=== PATIENT | female | born 1950 | race Caucasian/White ===

== ENCOUNTER 2017-02-13 08:43 | Inpatient (IN) | payer OTHER, MEDICAID ==
--- NOTE | 2017-02-13 08:37 | EDPHY ---
Medical Decision Making ED Course/Re-evaluation: CHIEF COMPLAINT: HISTORY OF PRESENT ILLNESS: must have 4 elements: Location, Quality, Severity , Duration, Timing, Context, Modifying Factors, Associated Signs and Symptoms REVIEW OF SYSTEMS: A 10 point review of systems was performed and is negative with the exception of the elements mentioned in the history of present illness. PHYSICAL EXAM: HR, BP, O2 Sat, RR. Temp noted General Appearance: Alert, well hydrated, appropriate, and non-toxic appearing. Head: Atraumatic without scalp tenderness or obvious injury Eyes: Pupils equal, round, reactive to light and accommodation, EOMI, no trauma , no injection. Ears: Clear bilaterally, no perforation, normal landmarks Nose: Atraumatic, no rhinorrhea, clear. Throat: There is no erythema or exudates, no lesions, normal tonsils, mucus membranes moist. Neck: Supple, 2+ carotid upstroke, nontender, no lymphadenopathy. Respiratory: No retractions, no distress, no wheezes, and no accessory muscle use. Lungs are clear to auscultation bilaterally. Cardiovascular: Regular rate and rhythm, no murmurs, rubs, or gallops. Bilateral carotid, radial, dorsalis pedis, and posterior tibial pulses intact. Good capillary refill all extremities. Gastrointestinal: Abdomen is soft, nontender, non-distended, no masses, no rebound, no guarding, no peritoneal signs. Musculoskeletal: Normal active ROM of all extremities, atraumatic. Neurological: Alert, appropriate, and interactive. The patient has normal DTRs and non-focal cranial nerves, motor, sensory, and cerebellar exam. Skin: No rashes, good turgor, no nodules on palpation. Past medical history: Past surgical history: Family history: Social history: DIAGNOSTICS/PROCEDURES/CRITICAL CARE TIME: DIFFERENTIAL DIAGNOSIS: MEDICAL DECISION MAKING:
[2017-02-13 09:12] LABS: % IMMATURE GRANULYOCYTES 0.6 % (0.0-1.1); ABSOLUTE IMMATURE GRANULOCYTES 0.06 10^3/uL (0.00-0.10); ADD DIFF? NO; ADD MORPH? NO; ADD SCAN? NO; ATYPICAL LYMPHOCYTE FLAG 0 (0-99); FRAGMENT RBC FLAG 0 (0-99); HEMATOCRIT 25.6 % (38.0-47.0); HEMOGLOBIN 8.3 g/dL (12.6-16.3); LEFT SHIFT FLG 10 (0-99); LIPEMIA HEMOLYSIS FLAG 80 (0-99); MEAN CELL HEMOGLOBIN 27.7 pg (27.9-34.1); MEAN CELL HEMOGLOBIN CONCENTR. 32.4 g/dL (32.4-36.7); MEAN CELL VOLUME 85.3 fL (81.5-99.8); MEAN PLATELET VOLUME 8.7 fL (8.7-11.7); PLATELET CLUMPS FLAG 0 (0-99); PLATELET COUNT 461 10^3/uL (150-400); RED CELL DISTRIBUTION WIDTH 17.4 % (11.5-15.2)
--- NOTE | 2017-02-13 09:15 | EDPHY ---
H & P Stated Complaint: Low grade fever, AMS - Personal History Current Tetanus/Diphtheria Vaccine: Yes - Medical/Surgical History Hx Asthma: No Hx Chronic Respiratory Disease: No Hx Diabetes: No Hx Cardiac Disease: No Hx Renal Disease: No Hx Cirrhosis: No Hx Alcoholism: No Hx HIV/AIDS: No Hx Splenectomy or Spleen Trauma: No Other PMH: MS, Quadriplegia, pressure ulcer rt buttock, HTN, Dysarthria, Dysphonia, Neurogenic Bowel, Muscle Spasms, Incontinence, Insomnia, Edema, Anemia, Hemorrhoids, Neurobuscular Dysfunction of Bladder - Social History Smoking Status: Never smoked Time Seen by Provider: 02/13/17 09:00 HPI/ROS: CHIEF COMPLAINT: Fever, altered mental status HISTORY OF PRESENT ILLNESS: 66-year-old female arrives via ambulance from [facility] for fever, altered mental status for 2 weeks, dysarthria increased over the past 2 weeks. The patient has medical history significant for multiple sclerosis, quadriplegia, sacral decubitus ulcer, chronic indwelling Moreno catheter. The patient has no complaints of discomfort when I interview her. Daughter at bedside states that the patient appears to have increased dysarthria over the past 2 weeks and increased altered mental status over the past 2 weeks with fever at her custodial. There are no reports of trauma or fall. No abdominal pain. No vomiting. REVIEW OF SYSTEMS: A ten point review of systems was performed and is negative with the exception of the items mentioned in the HPI PAST MEDICAL & SURGICAL HISTORY: Multiple sclerosis, quadriplegia, bed-bound, dysarthria, dysphonia, chronic indwelling Moreno catheter, sacral pressure ulcer SOCIAL HISTORY: lives in [place] PHYSICAL EXAM (Prior to examination, patient consented to physical exam, hands were washed and my usual and customary physical exam procedures followed) 1) GENERAL: Well-developed, well-nourished, alert and oriented. Appears to be in no acute distress. 2) HEAD: Normocephalic, atraumatic 3) HEENT: Pupils equal, round, reactive to light bilaterally. Sclera anicteric. 4) NECK: Full range of motion, no meningeal signs. 5) LUNGS: Clear auscultation bilaterally, no wheezes, no rhonchi, no retractions. 6) HEART: Regular rate and rhythm, no murmur, no heave, no gallop. 7) ABDOMEN: No guarding, no rebound, no focal tenderness, negative McBurney's, negative Fernandez's, negative Rovsing's, negative peritoneal sign, 8) MUSCULOSKELETAL: Moving all extremities, no focal areas of tenderness, no obvious trauma. No peripheral edema or discoloration. 9) BACK: stage IV decubitus ulcer 10) SKIN: No rash, no petechiae. 11) Psychiatric: Patient is oriented X 3, there is no agitation. 12) rectal: brown stool on glove no jeffrey blood DIFFERENTIAL DIAGNOSIS: [ in no particular order including but not limited to urosepsis, pyelonephritis, cystitis, sacral decubitus ulcer (Kwaku Regalado) Constitutional: Initial Vital Signs Temperature (C) 37.5 C 02/13/17 08:43 Heart Rate 82 02/13/17 08:43 Respiratory Rate 16 02/13/17 08:43 Blood Pressure 83/54 L 02/13/17 08:43 O2 Sat (%) 94 02/13/17 08:43 O2 Delivery Mode Nasal Cannula O2 (L/minute) 2.5 Allergies/Adverse Reactions: acyclovir Allergy (Verified 02/13/17 08:47) Home Medications: Medication Instructions Recorded Aspirin [Aspirin 81mg (*)] 81 mg PO HS@02/13/17 Baclofen [Baclofen 20 mg (*)] 20 mg PO BID@02/13/17 Baclofen [Baclofen 20 mg (*)] 20 mg PO DAILY@02/13/17 Bisacodyl [Dulcolax] 10 mg RC DAILY@02/13/17 Docusate Sodium [Colace 100 MG (*)] 200 mg PO DAILY@02/13/17 Ergocalciferol (Vitamin D2) 50,000 unit PO .Q30D 02/13/17 [Vitamin D2] Furosemide [Lasix 20 MG (*)] 40 mg PO BID@,02/13/17 Herbals/Supplements -Info Only 1 ea PO DAILY 02/13/17 Hydrocodone/Acetaminophen [Moran 1 - 2 tab PO BID@ PRN 02/13/17 5/325 (*)] Ibuprofen [Motrin (*)] 600 mg PO HS 02/13/17 Magnesium Hydroxide/Al Hydrox 30 ml PO Q4 PRN 02/13/17 [Mylanta Liquid] Magnesium Oxide [Magnesium Oxide 400 mg PO DAILY@02/13/17 400 mg (*)] Methotrexate Sodium [Rheumatrex] 2.5 mg PO WE@02/13/17 Multivitamins W-Minerals [Thera M 1 each PO DAILY@02/13/17 Plus Tablet (*)] [place]-3 Fatty Acids [Fish Oil 1000 1,000 mg PO DAILY@02/13/17 mg (*)] Oxybutynin Chloride [Oxybutynin 30 mg PO DAILY@02/13/17 Chloride Er] Potassium Cl [Klor-Con 20 meq (*)] 20 meq PO DAILY 02/13/17 Temazepam [RESTORIL] 22.5 mg PO CORTES@02/13/17 Temazepam [Restoril] 30 mg PO MOTUWETHFRSA@02/13/17 Tizanidine HCl [Zanaflex] 4 mg PO BID@,02/13/17 traMADol [Ultram 50 mg (*)] 100 mg PO TID@,,02/13/17 Medical Decision Making - Diagnostics Imaging: Discussed imaging studies w/ bias binding folder Radiologist - Diagnostics Imaging Results: Imaging Impressions Chest X-Ray 02/13/17 09:00 Impression: 1. Patchy infiltrates right suprahilar region and both lung bases. Consider pneumonia. 2. Mild to moderate cardiomegaly with shift of the mediastinum toward the right possibly from underlying moderate dextroscoliosis lower thoracic spine and elevation of the left hemidiaphragm. Head CT 02/13/17 09:10 Impression: 1. Mild age-related atrophy. 2. No hemorrhage, mass effect, or definite acute peripheral infarct. 3. Moderate nonspecific hypodensities in the white matter of bilateral cerebral hemispheres. Differential diagnosis includes microvascular ischemic disease, post-infectious/post-inflammatory sequela, atypical demyelinating disease, or migraine-related sequela. Small white matter lacunar infarcts may also have this appearance. If symptoms worsen, additional imaging may be necessary. Findings discussed with Kwaku BUITRAGO at 10:18 hour, 02/13/2017. ED Course/Re-evaluation: I evaluated this patient with Troy dover. I discussed the laboratory results , treatment plan, plan for admission. I have also spoken to her daughter and son-in-law. This patient has a very significant decubitus ulcer probably stage 3-4. She also has urinary infection. She continually is hypotensive according to the daughter that is chronic for her. Also, she is known to have anemia chronically. We have discussed the case with the hospitalist and she will be admitted. (Forest Posada) 9:13 a.m.: Care of patient under supervision of secondary supervising physician Dr Posada who independently evaluated patient. Old medical records reviewed. Multiple diagnostic studies will be obtained and plan on likely admission. 10:39 a.m.: Phone consultation with hospitalist, Halie Hamlin, admit to Dr Freitas (Kwaku Regalado) - Data Points Laboratory Results: Laboratory Results 02/13/17 09:01 02/13/17 09:01 02/13/17 02/13/17 02/13/17 10:38 10:38 09:20 WBC RBC Hgb Hct MCV MCH MCHC RDW Plt Count MPV Neut % (Auto) Lymph % (Auto) [place] % (Auto) Eos % (Auto) Baso % (Auto) Nucleat RBC Rel Count Absolute Neuts (auto) Absolute Lymphs (auto) Absolute Monos (auto) Absolute Eos (auto) Absolute Basos (auto) Absolute Nucleated RBC Immature Gran % Immature Gran # PT INR APTT VBG Lactic Acid Sodium Potassium Chloride Carbon Dioxide Anion Gap BUN Creatinine Estimated GFR Glucose Calcium Total Bilirubin Troponin I Urine Color DARIEN Urine Appearance TURBID Urine pH 6.0 (5.0-7.5) Ur Specific [place] 1.014 (1.002-1.030) Urine Protein 2+ H (NEGATIVE) Urine Ketones NEGATIVE (NEGATIVE) Urine Blood 3+ H (NEGATIVE) Urine Nitrate NEGATIVE (NEGATIVE) Urine Bilirubin NEGATIVE (NEGATIVE) Urine Urobilinogen NEGATIVE EU EU (0.2-1.0) Ur Leukocyte Esterase 2+ H (NEGATIVE) Urine RBC 25-50 /hpf H /hpf (0-3) Urine WBC 50-182 /hpf H /hpf (0-3) Ur Epithelial Cells TRACE /lpf /lpf (NONE-1+) Urine Bacteria 4+ /hpf H /hpf (NONE SEEN) Urine Glucose NEGATIVE (NEGATIVE) Stool Occult Bld Scrn Pending NEGATIVE (NEGATIVE) 02/13/17 02/13/17 02/13/17 09:12 09:01 09:01 WBC RBC Hgb Hct MCV MCH MCHC RDW Plt Count MPV Neut % (Auto) Lymph % (Auto) [place] % (Auto) Eos % (Auto) Baso % (Auto) Nucleat RBC Rel Count Absolute Neuts (auto) Absolute Lymphs (auto) Absolute Monos (auto) Absolute Eos (auto) Absolute Basos (auto) Absolute Nucleated RBC Immature Gran % Immature Gran # PT 14.5 SEC SEC (12.0-15.0) INR 1.14 (0.83-1.16) APTT 31.8 SEC SEC (23.0-38.0) VBG Lactic Acid Sodium 132 mEq/L L mEq/L (134-144) Potassium 4.1 mEq/L mEq/L (3.5-5.2) Chloride 95 mEq/L L mEq/L (97-110) Carbon Dioxide 26 mEq/l mEq/l (22-31) Anion Gap 11 mEq/L mEq/L (8-16) BUN 38 mg/dL H mg/dL (7-23) Creatinine 0.9 mg/dL mg/dL (0.6-1.0) Estimated GFR > 60 Glucose 104 mg/dL H mg/dL (70-100) Calcium 8.7 mg/dL mg/dL (8.5-10.4) Total Bilirubin 0.3 mg/dL mg/dL (0.1-1.4) Troponin I 0.022 ng/mL ng/mL (0.000-0.034) Urine Color Urine Appearance Urine pH Ur Specific [place] Urine Protein Urine Ketones Urine Blood Urine Nitrate Urine Bilirubin Urine Urobilinogen Ur Leukocyte Esterase Urine RBC Urine WBC Ur Epithelial Cells Urine Bacteria Urine Glucose Stool Occult Bld Scrn 02/13/17 02/13/17 09:01 09:01 WBC 10.73 10^3/uL H 10^3/uL (3.80-9.50) RBC 3.00 10^6/uL L 10^6/uL (4.18-5.33) Hgb 8.3 g/dL L g/dL (12.6-16.3) Hct 25.6 % L % (38.0-47.0) MCV 85.3 fL fL (81.5-99.8) MCH 27.7 pg L pg (27.9-34.1) MCHC 32.4 g/dL g/dL (32.4-36.7) RDW 17.4 % H % (11.5-15.2) Plt Count 461 10^3/uL H 10^3/uL (150-400) MPV 8.7 fL fL (8.7-11.7) Neut % (Auto) 86.8 % H % (39.3-74.2) Lymph % (Auto) 8.7 % L % (15.0-45.0) [place] % (Auto) 3.2 % L % (4.5-13.0) Eos % (Auto) 0.4 % L % (0.6-7.6) Baso % (Auto) 0.3 % % (0.3-1.7) Nucleat RBC Rel Count 0.0 % % (0.0-0.2) Absolute Neuts (auto) 9.33 10^3/uL H 10^3/uL (1.70-6.50) Absolute Lymphs (auto) 0.93 10^3/uL L 10^3/uL (1.00-3.00) Absolute Monos (auto) 0.34 10^3/uL 10^3/uL (0.30-0.80) Absolute Eos (auto) 0.04 10^3/uL 10^3/uL (0.03-0.40) Absolute Basos (auto) 0.03 10^3/uL 10^3/uL (0.02-0.10) Absolute Nucleated RBC 0.00 10^3/uL 10^3/uL (0-0.01) Immature Gran % 0.6 % % (0.0-1.1) Immature Gran # 0.06 10^3/uL 10^3/uL (0.00-0.10) PT INR APTT VBG Lactic Acid 0.9 mmol/L mmol/L (0.7-2.1) Sodium Potassium Chloride Carbon Dioxide Anion Gap BUN Creatinine Estimated GFR Glucose Calcium Total Bilirubin Troponin I Urine Color Urine Appearance Urine pH Ur Specific [place] Urine Protein Urine Ketones Urine Blood Urine Nitrate Urine Bilirubin Urine Urobilinogen Ur Leukocyte Esterase Urine RBC Urine WBC Ur Epithelial Cells Urine Bacteria Urine Glucose Stool Occult Bld Scrn Medications Given: Discontinued Medications Levofloxacin/Dextrose (Levaquin 750 Mg (Premix)) 150 mls @ 100 mls/hr IV EDNOW ONE PRN Reason: Protocol Stop: 02/13/17 10:44 Last Admin: 02/13/17 10:35 Dose: 150 mls Departure - Departure Disposition: [facility] Inpatient Acute Clinical Impression: Sacral decubitus ulcer, stage IV Fever Qualifiers: Fever type: unspecified Qualified Code(s): R50.9 - Fever, unspecified Altered mental status Qualifiers: Altered mental status type: unspecified Qualified Code(s): R41.82 - Altered mental status, unspecified Sepsis Qualifiers: Sepsis type: sepsis due to unspecified organism Qualified Code(s): A41.9 - Sepsis, unspecified organism Anemia Qualifiers: Anemia type: unspecified type Qualified Code(s): D64.9 - Anemia, unspecified Condition: Fair
[2017-02-13 09:38] LABS: INR 1.14 (0.83-1.16); PROTIME(PATIENT) 14.5 SEC (12.0-15.0)
[2017-02-13 09:39] LABS: APTT 31.8 SEC (23.0-38.0)
[2017-02-13] MEDS ORDERED: levOFLOXACIN 500 MG/DEXTROSE/100 ML BAG IV ONE (10:00)
[2017-02-13 10:03] LABS: COLOR AMBER; LEUKOCYTE ESTERASE,URINE 2+ (NEGATIVE); NITRITE,URINE NEGATIVE (NEGATIVE)
[2017-02-13 10:20] LABS: BACTERIA 4+ /hpf (NONE SEEN); RBC,URINE 25-50 /hpf (0-3); WBC,URINE 50-182 /hpf (0-3)
--- NOTE | 2017-02-13 10:41 | CPEKG ---
Heart Rate: 69 RR Interval: 870 P-R Interval: 148 QRSD Interval: 82 QT Interval: 412 QTC Interval: 442 P Benld: 26 QRS Benld: 62 T Wave Benld: 76 EKG Severity - ABNORMAL ECG - EKG Impression: SINUS RHYTHM EKG Impression: PROBABLE INFEROLATERAL INFARCT, AGE INDETERM EKG Impression: CONSIDER ANTERIOR INFARCT Electronically Signed By: Forest Posada 13-Feb-2017 14:33:03
[2017-02-13 11:06] LABS: ANION GAP 11 mEq/L (8-16); BILIRUBIN,TOTAL 0.3 mg/dL (0.1-1.4); CALCIUM 8.7 mg/dL (8.5-10.4); CARBON DIOXIDE 26 mEq/l (22-31); CHLORIDE 95 mEq/L (97-110); CREATININE 0.9 mg/dL (0.6-1.0); GLOMERULAR FILTRATION RATE > 60; GLUCOSE 104 mg/dL (70-100); POTASSIUM 4.1 mEq/L (3.5-5.2); SODIUM 132 mEq/L (134-144)
[2017-02-13] MEDS ORDERED: ONDANSETRON 4 MG/2 ML VIAL IVP PRN (11:27)
--- NOTE | 2017-02-13 11:31 | PDGENHP ---
History and Physical History and Physical: CC: fever and confusion HISTORY: Taken from the patient and also her daughter and son in law at bedside. First [facility] visit for this patient who has lived at [facility] for past 17 years with 30 years of multiple sclerosis. (notably it has been recommended to her for a few weeks she come to [facility] for evaluation but she has declined which is typical for her). She has a chronic sacral decubitus ucler and around 6 weeks ago it was noted the wound was getting deeper with some tunneling, but she declined to come here for wound assessment. She has had the ulcer for numerous years and getting regular wound care, and is on a wound care bed. Two days ago fevers as high as 101.9 started with some mild changes in mentation, but really no other symptoms, and she was felt to be dehydrated. It sounds like she received IV fluids, but no antibiotics or other change in care. ROS: A comprehensive 10 system review revealed no other significant findings PAST MEDICAL HISTORY: MS x 30 years neurogenic bladder with chronic indwelling rock cath neurgenic bowel chronic sacral decubitus 1 episode of pneumonia treated 4 yrs ago at [facility] FAMILY MEDICAL HISTORY: unremarkable for significant or relevent illness SOCIAL HISTORY: born at [facility], lived in [place] all but 4 years when she lived in [place]. No tobacco or alcohol MEDICATIONS: The patients list has been reconciled by our clinical pharmacist in the EMR. I have reviewed the list and ordered appropriate medicines. PHYSICAL EXAMINATION: Vital Signs: T 37.6. 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, minimal movement of limbs Skin: warm, dry, good color, no rash HEENT: normal Neck: no mass or jvd Resps: relaxed Lungs: clear breath sounds Heart: regular, no murmur Abdomen: soft, nondistended, nontender, +BS, no mass Upper Extremities: normal Lower Extremities: no edema, warm No Bleeding or bruising LABORATORY DATA: pyuria present on cath specimen (chronic rock in) Na 132, wbc 10k w pmn's, Hg 8.3 normocytic cultures of blood and urine obtained in ER RADIOLOGY STUDIES: CXR 2 view in ER: Radiologist reports bibasilar infiltrates, My Interpetation: nothing that really looks like a pneumonia, but rather severely low lung volumes with expected atelectasis (this is expected chronic finding for her); also her heart is mainly in the R hemithorax, could not rule out situs inversus w no old comparison - could call this due to loss of lung volume however looks like lung volume loss greater on L than R so would expect heart to go other way. Head CT in ER, my reading: no acute abnormalities 12 LEAD EKG: NSR, very mild diffuse concave up ST elevation of questionable significance ASSESSMENT: -fever uncertain source -hypotension, not meeting strict criteria for sepsis but needs very careful monitoring -large decubitus ulcer -pyuria with chronic indwelling rock cath of very doubtful significance -CXR abnormalities I believe most likely represent atelectasis with chronic low lung volumes; no resp sxs; I do NOT think she has pneumonia -mild hyponatremia -anemia normocytic, chronic, uncertain baseline In the ER this patient was diagnosed as having a urinary tract infection and started on Levaquin for that. I do not think she has a urinary tract infection at this time very likely, and I do not think she has an visits of any other infection that is likely to respond to Levaquin. Therefore I am going to discontinue that antibiotic. She does have a very large decubitus ulcer that is very deep and has a moderate chance of infection. Under await for surgical assessment of this and wound care assessment but it seems to me that there is a possibility of deep infection including even possibly osteomyelitis and that advanced imaging is probably indicated. I have sent a culture from the bed of the wound obtained on my examination today. I am going to begin empiric antibiotic for wound infection at this time. PLANS: -inpt admission as > 48 hrs will be needed for assessment and stabilization -IV fluid resuscitation -discontinue Levaquin -wound care consultation -surgical consultation -empiric antibiotic for care of her deep sacral wound -she will need a specialty skin care mattress -full cor per the patient's wishes I have reviewed the patient's case in detail with Dr. Dragan King and Amairani Mata
--- NOTE | 2017-02-13 11:44 | ASMTCASEMG ---
Living Arrangements What is your living Answers: With Other (Not Family) arrangement? Who do you live with? Type Of Residence What kind of residence do Answers: Assisted Living you live in? Type of Residence Facility Name Notes: [facility] Case Management Evaluation Education Needs Answers: Advance Directive Notes: Request for Advance Directive change of cod e Discharge Plan Comments Coordination Status Comments Notes: Pt in [facility] via ambulance from [facility]. She arrived with altered mental status and fever. Pts daughter Eunice Kilpatrick ([phone]) and son in law Michael Kilpatrick ([phone]) both RNs expressed concerns about her deteriorating state and increasing symptoms of MS. Specifically, pt has experienced increased choking and inability to chew. Eunice expressed high concerns for pts quality of life. They indicated that pt has been in [facility] for 17 years and there are no significant complaints regarding her care. Pt is generally healthy aside from a wound that will not heal near her rectum; it has been there for 7 years. According to Eunice, the pt loves the [facility] and has a new grandbaby on the way; she views those as her primary motivators. The pts lives in [place]. Eunice and Michael expressed concern regarding his ability to make decisions with regard to pts care. Eunice would like to be the decision maker for her mother. Eunice and Michael provided with "Your Right to Make Healthcare Decisions" brochure. Additional advanced directive information would be beneficial. Eunice would like to initiate an advanced directive but the pt has declined to discuss it. Additional CM needs TBD, CM to follow. Date Signed: 02/13/2017 11:43 AM Electronically Signed By:Darshana Reynolds LCSW
[2017-02-13] MEDS ORDERED: MAG HYDROX/AL HYDROX/SIMETH 30 ML UDCUP PO PRN (12:48)
[2017-02-13] MEDS: ACETAMINOPHEN 325 MG TAB PO PRN (13:53)
[2017-02-13] MEDS ORDERED: NON-FORMULARY NEW DRUG (Magnesium Hydroxide/Al Hydrox [Mylanta Liquid] 30 ML) PO SCH (14:00)
[2017-02-13] MEDS: FUROSEMIDE 20 MG TAB PO SCH (16:26)
[2017-02-13] MEDS: HYDROCODONE/APAP 5/325 TAB PO PRN (16:26)
[2017-02-13] MEDS ORDERED: NON-FORMULARY NEW DRUG (Tizanidine Hcl [Zanaflex] 4 MG) PO SCH (19:00)
[2017-02-13] MEDS: traMADol 50 MG TAB PO SCH (20:01)
[2017-02-13] MEDS: BACLOFEN 20 MG TAB PO SCH (20:02)
[2017-02-13] MEDS: IBUPROFEN 600 MG TAB PO SCH (20:02)
[2017-02-13] MEDS: NS 1,000 ML IV SCH (21:14)
[2017-02-13] MEDS: VANCOMYCIN 750 MG in D5W 150 ML IV SCH (21:15)
[2017-02-13] MEDS: ASPIRIN 81 MG CHEWABLE TAB PO SCH (22:19)
[2017-02-13] MEDS: ERTAPENEM 1 GM in NS 100 ML IV SCH (22:35)
[2017-02-13] MEDS: TEMAZEPAM 15 MG CAP PO SCH (22:40)
[2017-02-13] MEDS ORDERED: NON-FORMULARY NEW DRUG (Temazepam [Restoril] 30 MG) PO SCH (23:00)
[2017-02-14] MEDS: ACETAMINOPHEN 325 MG TAB PO PRN (01:13)
[2017-02-14] MEDS: NS 1,000 ML IV SCH (04:04)
[2017-02-14 04:39] LABS: % IMMATURE GRANULYOCYTES 1.6 % (0.0-1.1); ABSOLUTE IMMATURE GRANULOCYTES 0.09 10^3/uL (0.00-0.10); ADD DIFF? NO; ADD MORPH? YES; ADD SCAN? NO; ATYPICAL LYMPHOCYTE FLAG 0 (0-99); FRAGMENT RBC FLAG 0 (0-99); HEMATOCRIT 21.8 % (38.0-47.0); LEFT SHIFT FLG 20 (0-99); LIPEMIA HEMOLYSIS FLAG 80 (0-99); MEAN CELL HEMOGLOBIN 27.4 pg (27.9-34.1); MEAN CELL HEMOGLOBIN CONCENTR. 31.7 g/dL (32.4-36.7); MEAN CELL VOLUME 86.5 fL (81.5-99.8); MEAN PLATELET VOLUME 8.6 fL (8.7-11.7); PLATELET CLUMPS FLAG 0 (0-99); PLATELET COUNT 336 10^3/uL (150-400); RED BLOOD CELL COUNT 2.52 10^6/uL (4.18-5.33); RED CELL DISTRIBUTION WIDTH 17.7 % (11.5-15.2)
[2017-02-14 04:44] LABS: HEMOGLOBIN 6.9 g/dL (12.6-16.3)
[2017-02-14 04:56] LABS: ANION GAP 7 mEq/L (8-16); CALCIUM 7.9 mg/dL (8.5-10.4); CARBON DIOXIDE 23 mEq/l (22-31); CHLORIDE 104 mEq/L (97-110); CREATININE 0.8 mg/dL (0.6-1.0); GLOMERULAR FILTRATION RATE > 60; GLUCOSE 87 mg/dL (70-100); MAGNESIUM 2.1 mg/dL (1.6-2.3); POTASSIUM 3.6 mEq/L (3.5-5.2); SODIUM 134 mEq/L (134-144)
[2017-02-14 05:15] LABS: HYPOCHROMIA 1+; MICROCYTES 1+
[2017-02-14 05:16] LABS: PLATELET ESTIMATE ADEQUATE (ADEQ)
[2017-02-14] MEDS: BISACODYL 10 MG SUPP PR SCH (05:58)
[2017-02-14] MEDS: FUROSEMIDE 20 MG TAB PO SCH ×2 (06:11→17:09)
[2017-02-14] MEDS: traMADol 50 MG TAB PO SCH ×3 (06:11→19:59)
[2017-02-14] MEDS: MAGNESIUM OXIDE 400 MG TAB PO SCH (06:11)
[2017-02-14] MEDS: BACLOFEN 20 MG TAB PO SCH ×3 (06:11→20:07)
[2017-02-14] MEDS: MULTIVITAMINS W-MINERALS 1 EACH TAB PO SCH (06:11)
[2017-02-14] MEDS: OMEGA-3 FATTY ACIDS 1,000 MG CAP PO SCH (06:29)
[2017-02-14] MEDS: OXYBUTYNIN CHLORIDE 30 MG PO SCH (06:32)
[2017-02-14] MEDS: VANCOMYCIN 750 MG in D5W 150 ML IV SCH ×2 (07:32→20:57)
[2017-02-14] MEDS: ENOXAPARIN 40 MG/0.4 ML SYR SC SCH (07:33)
[2017-02-14] MEDS: ERTAPENEM 1 GM in NS 100 ML IV SCH (07:33)
[2017-02-14] MEDS: POTASSIUM CL 20 MEQ TAB PO SCH (07:34)
[2017-02-14] MEDS ORDERED: OMEGA-3 FATTY ACIDS 1,000 MG CAP PO SCH (09:00)
--- NOTE | 2017-02-14 09:46 | HOSPPROG ---
Hospitalist Progress Note Assessment/Plan: 66F PMH MS, neurogenic bladder, chronic sacral decubitus ulcer, MS quadriplegia , [facility] resident for the past 17 years. She was recommended to have admission by [facility] staff oer the past few weeks due worsening of sacral ulcer but apparently declined it. 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 Admitted with F, hypotension, pyuria, large decub ulcer. #. large decubitus ulcer: started on Ertapenem and Vanco surgery consult today with Dr. Nelson dennis NPO #. pyuria: await cultures #. F: currently afebrile #. bacteremia versus contaminant: await results of culture reviewed with Dr. Mata who recommends ID consult if bacteremia present #. hypotension: BP improved # anemia: possibly related to IVF will follow #. LOS: inpt due to +BC and need for ongoing care/wound consultation #. DVT ppx: Enoxaparin Subjective: Difficult to understand but states her mouth feels dry. No pain unless moved. Objective: Vital Signs Temp Pulse Resp BP Pulse Ox 98.0 F 87 20 120/59 L 93 02/14/17 07:36 02/14/17 07:36 02/14/17 07:36 02/14/17 07:36 02/14/17 07:36 Microbiology 02/13/17 14:16 Gram Stain - Final Buttock - Swab 02/13/17 13:20 Respiratory Panel (PCR) - Final Nasal, Sinus - Swab No Organism Detected Laboratory Results 02/14/17 04:15 02/14/17 04:15 02/13/17 02/14/17 02/15/17 05:59 05:59 05:59 Intake Total 2200 Output Total 1100 Balance 1100 PT 14.5 SEC (12.0-15.0) 02/13/17 09:01 INR 1.14 (0.83-1.16) 02/13/17 09:01 - Physical Exam Constitutional: no apparent distress Ears, Nose, Mouth, Throat: dry mucous membranes Cardiovascular: regular rate and rhythym, no murmur, rub, or gallop Respiratory: no respiratory distress Skin: other (ischial decub ulcer visualized) Psychiatric: not anxious ICD10 Worksheet Patient Problems: Problems Problem Status Onset Altered mental status Acute Anemia Acute Fever Acute Sacral decubitus ulcer, stage IV Acute Sepsis Acute
--- NOTE | 2017-02-14 10:47 | PDCONSULT ---
Filter Washer Note: Consultation for right ischial decubitus ulcer at the request of Dr. aHmlin Chief complaint fever of unknown origin History of present illness: This is a 66-year-old woman with a history of multiple sclerosis spastic quadriplegia and right ischial decubitus for at least the last 7 years who presents to the hospital for evaluation and management of fever. CT scan of the head was negative. Chest x-ray showed compressive atelectasis. Echocardiogram for vegetations has not been performed. Large decubitus ulcer of the right ischium without exposed bone was noted. Wound Gram stains and cultures are still pending but gram-positive and gram-negative bacteria were noted on the preliminary report. Past medical hx: Altered mental status (Acute) Anemia (Acute) Fever (Acute) Sacral decubitus ulcer, stage IV (Acute) Sepsis (Acute) Surgical history unable to obtain from patient. Reviewed in chart Aspirin [Aspirin 81mg (*)] 81 mg PO HS@02/13/17 [Last Taken 02/12/17] Baclofen [Baclofen 20 mg (*)] 20 mg PO BID@02/13/17 [Last Taken 02/12/17] Baclofen [Baclofen 20 mg (*)] 20 mg PO DAILY@02/13/17 [Last Taken 02/13/17] Bisacodyl [Dulcolax] 10 mg RC DAILY@02/13/17 [Last Taken 02/13/17] Docusate Sodium [Colace 100 MG (*)] 200 mg PO DAILY@02/13/17 [Last Taken 11:00] Ergocalciferol (Vitamin D2) [Vitamin D2] 50,000 unit PO .Q30D 02/13/17 [Last Taken 01/26/17] Furosemide [Lasix 20 MG (*)] 40 mg PO BID@02/13/17 [Last Taken 02/12/17] Herbals/Supplements -Info Only 1 ea PO DAILY 02/13/17 [Last Taken Unknown] Hydrocodone/Acetaminophen [Clifton 5/325 (*)] 1 - 2 tab PO BID@ PRN 02/13/17 [Last Taken 02/12/17] Ibuprofen [Motrin (*)] 600 mg PO HS 02/13/17 [Last Taken 02/12/17] Magnesium Hydroxide/Al Hydrox [Mylanta Liquid] 30 ml PO Q4 PRN 02/13/17 [Last Taken Unknown] Magnesium Oxide [Magnesium Oxide 400 mg (*)] 400 mg PO DAILY@02/13/17 [Last Taken 02/12/17] Methotrexate Sodium [Rheumatrex] 2.5 mg PO WE@02/13/17 [Last Taken 02/10/17] Multivitamins W-Minerals [Thera M Plus Tablet (*)] 1 each PO DAILY@02/13/17 [ Last Taken 02/12/17] [place]-3 Fatty Acids [Fish Oil 1000 mg (*)] 1,000 mg PO DAILY@02/13/17 [Last Taken 02/12/17] Oxybutynin Chloride [Oxybutynin Chloride Er] 30 mg PO DAILY@02/13/17 [Last Taken 02/12/17] Potassium Cl [Klor-Con 20 meq (*)] 20 meq PO DAILY 02/13/17 [Last Taken 02/12/17 ] Temazepam [RESTORIL] 22.5 mg PO CORTES@02/13/17 [Last Taken 02/07/17] Temazepam [Restoril] 30 mg PO MOTUWETHFRSA@02/13/17 [Last Taken 02/12/17] Tizanidine HCl [Zanaflex] 4 mg PO BID@02/13/17 [Last Taken Unknown] traMADol [Ultram 50 mg (*)] 100 mg PO TID@,,02/13/17 [Last Taken 02/12/17 ] Review of systems is significant for dry mouth Long-term multiple sclerosis with spastic quadriplegia Decubitus ulcer stage IV. All others negative Allergies acyclovir Family history noncontributory Open size response to communication appears to be oriented to place Regular rate and rhythm Clear to auscultation Abdomen protuberant soft no hepatosplenomegaly Extremities without edema 2+ over 2+ peripheral pulses Large ischial decubitus ulcer right without exposed bone seropurulent thin exudate no obvious stool contamination Rectum juxtaposed to wound. Will be difficult for wound management. 02/14/17 04:15 02/14/17 04:15 Total Bilirubin 0.3 mg/dL (0.1-1.4) 02/13/17 09:01 Urinalysis reviewed not convincing for UTI Chest x-ray personally reviewed also shows atelectasis no signs of consolidation Impression: Multiple sclerosis with spastic quadriplegia. Admitted for fever on likely to be secondary to ischial decubitus ulcer given the fact there is no active signs of acute infection however there is chronic nonhealing tissue. Unknown etiology of fever agree with assessment that this does not appear to be UTI or pulmonary. Plan: After discussion with the daughter up plan will be made whether she needs diversion for optimal wound VAC therapy and overall management of GI tract. Fever of unknown origin. I do not believe it is solely due to her decubitus ulcer given its lack of acute infection. It is likely chronically colonized as is her bladder. There are risks, benefits and alternatives to diversion of fecal material. Benefits could be easier overall wound care and bowel management. Wet to dry dressings can be initially done. The wound was packed with Kerlix and normal saline dressed with ABD along with wound care team. I believe overall wound VAC therapy would be most appropriate. Offloading and nutrition have also been discussed as adjuvant options for wound care. The patient has chronic anemia from disease therapy used to be no acute blood- loss. She will be maintained on her regular medications discussion for surgery versus local wound care only will be entertained. Approximately 45 minutes was spent with the patient and family more than half this time coordinating care and counseling.
[2017-02-14] MEDS: DOCUSATE SODIUM 100 MG CAP PO SCH (11:17)
--- NOTE | 2017-02-14 14:46 | WOCRNPDOC ---
ROWAN Advanced Assessment Note - Skin Integrity Problem, Advanced Assess Right Ischial Tuberosity Pressure Injury Dressing Type: Allevyn Life Dressing Description: Saturated Exudate Amount: Moderate Exudate Characteristic(s): Sanguinopurulent Integumentary Issue Intervention: Dressing Changed Adilene Wound Tissue: Erythema (confined to immediate periwound), Intact Wound Bed Constitution: Granulation Tissue, Tunneling Site Odor: Moderate Site Measurement - Head-to-Toe Length X Width X Depth (cm): 5cmx5.2rbw9um. Tunnelin-7 cm from 12-4 o'clock Pressure Injury Stage: Stage 4 Pressure Injury Present on Admit: Yes (documented in H&P) Skin Integrity Problem Comment: Large tunneling pressure inury noted over R ischium, extending toward perineum. No apparent necrosis visualized at wound opening; unable to discern if there is any in the deeper tunneling areas from 12 -4 o'clock. There is a moderate amount of malodorous, sanguinopurulent exudate present. There is no visible bone, however I was able to palpate tissue-covered bone in the tunneling areas. Adilene-wound skin is currently intact. Assessed site w/ Dr. Damon at the bedside, who did not think there was any debridement necessary. He packed wound w/ NS and Kerlix, followed by an ABD. Concensus is that this patient could benefit from NPWT, if we can secure the vac dressing appropriately. Wound care will follow up tomorrow 02/15 for possible vac dressing placement. In the interim, Clinitron bed has been ordered for the patient, and she is being turned q2 using TAPS. chief nurseGIANNA Ospina present and assisting.
--- NOTE | 2017-02-14 15:00 | ASMTCMCOM ---
CM Note CM Note Notes: Senior Linux Unix Engineer completed MPOA with pt and her family. Pt unable to sign 2/2 her MS however dtr and other family members present as witnesses along with the butcher helper. A palliative consult has been requested by pt and family and they want to complete a MOST form. PA informed. Anticipate d/c back to [facility] when medically ready. Date Signed: 02/14/2017 02:59 PM Electronically Signed By:CHERI Grewal
[2017-02-14] MEDS: HYDROCODONE/APAP 5/325 TAB PO PRN (17:17)
[2017-02-14] MEDS: IBUPROFEN 600 MG TAB PO SCH (19:59)
[2017-02-14] MEDS: TEMAZEPAM 15 MG CAP PO SCH (22:11)
[2017-02-14] MEDS: ASPIRIN 81 MG CHEWABLE TAB PO SCH (22:11)
[2017-02-14] MEDS ORDERED: TEMAZEPAM 22.5 MG PO SCH (23:00)
[2017-02-14] MEDS ORDERED: NS 500 ML IV ONE (23:37)
[2017-02-15] MEDS: BISACODYL 10 MG SUPP PR SCH (06:00)
[2017-02-15] MEDS: FUROSEMIDE 20 MG TAB PO SCH ×2 (06:08→16:24)
[2017-02-15] MEDS: BACLOFEN 20 MG TAB PO SCH ×3 (06:08→20:57)
[2017-02-15] MEDS: traMADol 50 MG TAB PO SCH ×3 (06:09→20:57)
[2017-02-15] MEDS: MULTIVITAMINS W-MINERALS 1 EACH TAB PO SCH (06:09)
[2017-02-15] MEDS: MAGNESIUM OXIDE 400 MG TAB PO SCH (06:09)
[2017-02-15] MEDS: OMEGA-3 FATTY ACIDS 1,000 MG CAP PO SCH (06:09)
[2017-02-15] MEDS: OXYBUTYNIN CHLORIDE 30 MG PO SCH (06:29)
[2017-02-15] MEDS: ERTAPENEM 1 GM in NS 100 ML IV SCH (08:45)
[2017-02-15] MEDS: VANCOMYCIN 750 MG in D5W 150 ML IV SCH ×2 (09:31→20:57)
[2017-02-15] MEDS: HYDROCODONE/APAP 5/325 TAB PO PRN (10:10)
[2017-02-15] MEDS: POTASSIUM CL 20 MEQ TAB PO SCH (10:11)
[2017-02-15] MEDS: ENOXAPARIN 40 MG/0.4 ML SYR SC SCH (10:14)
--- NOTE | 2017-02-15 11:15 | WOCRNPDOC ---
ROWAN Advanced Assessment Note - Skin Integrity Problem, Advanced Assess Right Ischial Tuberosity Pressure Injury Dressing Type: Allevyn Life, Kerlix Dressing Description: Intact, Soiled (urine) Exudate Amount: Scant Exudate Characteristic(s): Serosanguinous Integumentary Issue Intervention: Dressing Changed Adilene Wound Tissue: Scarred Wound Bed Constitution: Granulation Tissue (50%), Smooth Tissue (50%), Tunneling (6oclock 4 cm), Undermining (12-3 oclock 7 to 4 cm ) Site Measurement - Head-to-Toe Length X Width X Depth (cm): 5.7x1.8x5.2 Pressure Injury Stage: Stage 4 Pressure Injury Present on Admit: Yes Skin Integrity Problem Comment: Flushed wound with ns. Urine was leaking around rock so adilene wound skin was moist which made it a bit challenging to drape. However wound seemed far enough from anus to acheive a good seal. The only issue might be that drape was continuing to get wet with urine which might compromise vac dressing. Dressing should be checked on a regular basis for integrity. Placed one piece of medium black foam into wound bed after draping adilene wound. Mastisol applied along inferior wound margin to help maintain seal. Vac bridged to right hip and started at -125 mm Hg continuous suction without leaks. Urgency of rock issue conveyed to GIANNA Nayak, Hanny PUGA's and Sunita RN observer in room for care. Patient tolerated proceedure well. Patient is the perfect candidate for wound closure at [facility] ([facility]).
[2017-02-15] MEDS: DOCUSATE SODIUM 100 MG CAP PO SCH (11:25)
--- NOTE | 2017-02-15 15:27 | HOSPPROG ---
Hospitalist Progress Note Assessment/Plan: 66F PMH MS, neurogenic bladder, chronic sacral decubitus ulcer, MS quadriplegia , [facility] resident for the past 17 years. She was recommended to have admission by [facility] staff over the past few weeks due worsening of sacral ulcer but apparently declined it. 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 Admitted with F, hypotension, pyuria, large decub ulcer. #. large decubitus ulcer: started on Ertapenem and Vanco surgery consulted Dr. Damon wound vac placed #. pyuria: pseudomonas and ecoli consult ID catheter changed #. F: currently afebrile #. bacteremia: reviewed with Dr. Perkins consult pending #. hypotension: BP improved # anemia: possibly related to IVF will follow, chronic #. LOS: inpt due to +BC and need for ongoing care/wound consultation #. DVT ppx: Enoxaparin # palliative care consult planned for am Subjective: Not feeling well. Some pain. Objective: Vital Signs Temp Pulse Resp BP Pulse Ox 36.3 C 65 18 97/55 L 95 02/15/17 12:00 02/15/17 12:00 02/15/17 12:00 02/15/17 12:00 02/15/17 12:00 Microbiology 02/13/17 14:16 Gram Stain - Final Buttock - Swab Laboratory Results 02/14/17 04:15 02/14/17 04:15 02/14/17 02/15/17 02/16/17 05:59 05:59 05:59 Intake Total 2200 2400 Output Total 1100 400 Balance 1100 2400 -400 PT 14.5 SEC (12.0-15.0) 02/13/17 09:01 INR 1.14 (0.83-1.16) 02/13/17 09:01 - Physical Exam Constitutional: appears nourished, chronically ill appearing, uncomfortable Eyes: PERRL, anicteric sclera, EOMI Ears, Nose, Mouth, Throat: moist mucous membranes, hearing normal, ears appear normal Cardiovascular: regular rate and rhythym, No JVD, No edema Respiratory: no respiratory distress, no rales or rhonchi, reduced air movement Gastrointestinal: No tenderness, No ascites, No guarding Genitourinary: other (catheter) Skin: warm, erythema, pressure ulcer Musculoskeletal: no joint effusions, pain with ROM, generalized weakness Psychiatric: not encephalopathic, anxious, poor memory ICD10 Worksheet Patient Problems: Problems Problem Status Onset Sacral decubitus ulcer, stage IV Acute Fever Acute Altered mental status Acute Sepsis Acute Anemia Acute
--- NOTE | 2017-02-15 18:07 | PDCONSULT ---
Gag Writer Note: Asked to see pt for rock placement. 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 Other option would be to close bladder neck or place ileal conduit. Overall initial rx with PCN would be less invasive and should be considered.
[2017-02-15] MEDS: IBUPROFEN 600 MG TAB PO SCH (20:57)
[2017-02-15] MEDS: ACETAMINOPHEN 325 MG TAB PO PRN (22:49)
[2017-02-15] MEDS: ASPIRIN 81 MG CHEWABLE TAB PO SCH (22:49)
[2017-02-16] MEDS: OMEGA-3 FATTY ACIDS 1,000 MG CAP PO SCH ×2 (03:59→04:33)
[2017-02-16] MEDS: BACLOFEN 20 MG TAB PO SCH ×3 (04:00→18:28)
[2017-02-16] MEDS: FUROSEMIDE 20 MG TAB PO SCH (04:00)
[2017-02-16] MEDS: MULTIVITAMINS W-MINERALS 1 EACH TAB PO SCH (04:00)
[2017-02-16] MEDS: MAGNESIUM OXIDE 400 MG TAB PO SCH (04:00)
[2017-02-16] MEDS: traMADol 50 MG TAB PO SCH ×3 (04:01→18:28)
[2017-02-16] MEDS: OXYBUTYNIN CHLORIDE 30 MG PO SCH (04:02)
[2017-02-16] MEDS: BISACODYL 10 MG SUPP PR SCH (04:33)
--- NOTE | 2017-02-16 04:51 | GCON ---
[f rep st] CONSULTATION INPATIENT INFECTIOUS DISEASE CONSULTATION REFERRING PHYSICIAN: Lori Guallpa NP REASON FOR REFERRAL: Bacteremia and chronic left-sided ischial decubitus. HISTORY OF PRESENT ILLNESS: The patient is a 66-year-old female, who was admitted through the emerge ncy room on 02/13/2017 with the complaint of fever and confusion. The patient has had multiple scler osis for 30 years. She has lived at [place] for the past 17 years. The patient had a chronic sac ral decubitus ulcer which is really a left ischial ulcer as well. Around 6 weeks ago the wound began getting larger and deeper. The patient had been advised to go to [facility] for evalu ation but she demurred over the last few weeks. The patient began having fevers up to [address] arting 2 days prior to admission. Presently she is resting comfortably in her hospital bed. She was placed on ertapenem and vancomycin empirically upon admission. She has not been noted to be signifi cantly febrile since admission 2 days ago. PAST MEDICAL HISTORY: 1. Multiple sclerosis for 30 years. 2. Neurogenic bladder and chronic indwelling Moreno catheter. 3. Neurogenic bowel. 4. Ischial decubitus on the left side. 5. History of pneumonia. PAST SURGICAL HISTORY: None noted. MEDICATIONS: ANTIBIOTICS: 1. Ertapenem. 2. Vancomycin. ALLERGIES: The patient is allergic to acyclovir. SOCIAL HISTORY: The patient is a [place]. No significant tobacco, alcohol, or drug use. Kulwinder talbot has a supportive family. FAMILY HISTORY: Reviewed, but noncontributory. REVIEW OF SYSTEMS: Other than that detailed above in the history of present illness, a comprehensive 10-system review is negative. PHYSICAL EXAMINATION: VITAL SIGNS: Temperature maximum is 37.5, temperature current is 36.4. Heart rate is 72, respiratory rate is 22, blood pressure is 113/78. GENERAL: The patient is a well-forme d, well-nourished, older female, in no acute distress. She is bed bound secondary to chronic neurolo gic disease. She is alert and oriented x3. She is pleasant in demeanor. HEENT: Normocephalic for age. Atraumatic. No scleral icterus. No oral lesion or drainage from the nares. Eyes: Lids and conjunctivae are within normal limits. Pupils are equal and round bilaterally. NECK : Supple. No meningismus. LUNGS: Clear to auscultation bilaterally. HEART: Regular rate and rhy thm. No significant peripheral edema. SKIN: Warm and dry to the touch. The patient has no diffuse rash, although she does have a notable left ischial decubitus ulcer which is deep and tunneling. Ma lodor is not significant. MUSCULOSKELETAL: No other muscle or flank tenderness is noted. No joint line effusion or arthritis is seen. NEURO: Cranial nerves 2-12 seem to be intact. Peripheral neuro logic evaluation is complicated by longstanding multiple sclerosis. LABORATORY DATA: The patient has a CBC dated 02/14/2017 that shows a white blood cell count of 5.6, hemoglobin of 6.9, hematocrit of 21.8, platelet count of 336, differential is within normal limits. Serum chemistries on 02/14/2017 shows a sodium of 134, potassium of 3.6, chloride of 104, bicarbonate of 23, BUN of 27, creatinine of 0.8. Urinalysis shows 25-50 red blood cells with 50-182 white blood cells per high-power field. Vanc trough dated 02/15/2017 is 12.7. MICROBIOLOGIC DATA: The patient has blood cultures dated 02/13/2017, which are growing Clostridium r amosum. One of the 2 is also growing Staphylococcus capitis. Urine culture dated 02/13/2017 is grow ing both E coli and Pseudomonas aeruginosa. Buttocks swab in the left ischial region on 02/13/2017 i s growing E coli as well as MRSA. Repeat blood cultures on 02/14/2017 are no growth to date. ASSESSMENT: Bacteremia secondary to Clostridium ramosum. Unclear whether the Staphylococcus capitis is real or contaminant in 1 set of cultures. Her open ischial wound has multiple bacteria growing a lready in culture. This is not a surprise. It is likely the source of her bloodstream contamination . At this point, we will cover her with both vancomycin ertapenem and watch for improvement in sympt oms. We will also watch for cleared repeat blood cultures. PLAN: 1. Continue both vancomycin and ertapenem at present. Follow maturing culture data. 2. Follow her clinical course. 3. Check in with General Surgery, as well as Wound Care, about the need to potentially divert stool stream to treat the chronic ulcers of her buttocks and pelvic region. /[id number]/MODL
--- NOTE | 2017-02-16 08:28 | HOSPPROG ---
Hospitalist Progress Note Assessment/Plan: Patient is a 66-year-old female who was admitted on February 13 with complaints of fever and confusion. She has had multiple sclerosis for 30 years and has lived at [place] for the past 17 years. In addition she has a neurogenic bladder, quadrant plegia. She has a chronic sacral decubitus ulcer. It has been getting larger and deeper. Today is my 1st encounter with the patient. Chart reviewed. * large decubitus ulcer Unable to keep wound VAC in place due to Moreno being dislodged * bacteremia secondary to Clostridium ramosum On vancomycin and ertapenem *Pyuria Pseudomonas and E coli * prolapse bladder Catheter not placed at this time recommendation is for bilateral nephrostomy tubes urology doesn't want to place a suprapubic in the setting of bacteremia but concerned to place nephrostomy * anemia Will check hemoglobin hematocrit now * hypotension Blood pressure is 108/55 * plan. Palliative care team to see as well as Urology and Infectious Disease. Hold lasix for now/not eating well or drinking much #. DVT ppx: Enoxaparin Subjective: Bianca is hungry. Objective: Vital Signs Temp Pulse Resp BP Pulse Ox 36.9 C 78 18 108/55 L 99 02/16/17 04:00 02/16/17 04:00 02/16/17 04:00 02/16/17 04:00 02/16/17 04:00 Microbiology 02/13/17 14:16 Gram Stain - Final Buttock - Swab Laboratory Results 02/14/17 04:15 02/14/17 04:15 02/15/17 02/16/17 02/17/17 05:59 05:59 05:59 Intake Total 2400 290 Output Total 400 Balance 2400 -110 PT 14.5 SEC (12.0-15.0) 02/13/17 09:01 INR 1.14 (0.83-1.16) 02/13/17 09:01 - Physical Exam Constitutional: chronically ill appearing, uncomfortable Eyes: PERRL Ears, Nose, Mouth, Throat: hearing normal, poor dentition, dry mucous membranes Cardiovascular: no murmur, rub, or gallop Respiratory: no respiratory distress Gastrointestinal: normoactive bowel sounds Musculoskeletal: other (paraplegic) Neurologic: other (alert, confused) Psychiatric: poor memory ICD10 Worksheet Patient Problems: Problems Problem Status Onset Altered mental status Acute Anemia Acute Fever Acute Sacral decubitus ulcer, stage IV Acute Sepsis Acute
[2017-02-16] MEDS: ERTAPENEM 1 GM in NS 100 ML IV SCH (08:42)
--- NOTE | 2017-02-16 08:52 | SOAPPROG ---
SOAP Progress Note Assessment/Plan: Assessment: Urinary incontinence in setting of MRSA decubitus ulcer and bacteremia. Plan: Discussed case with Fabiana Romero and Lori Thomas. Given surgical risk, recommend placement of bilateral perc tubes to divert urine before considering more aggressive surgical assessment. 02/16/17 08:50 Subjective: Not communicating urinary concerns. Objective: Vital Signs Temp Pulse Resp BP Pulse Ox 36.3 C 67 20 100/60 97 02/16/17 08:00 02/16/17 08:00 02/16/17 08:00 02/16/17 08:00 02/16/17 08:00 Microbiology 02/13/17 14:16 Gram Stain - Final Buttock - Swab Laboratory Results 02/14/17 04:15 02/14/17 04:15 02/15/17 02/16/17 02/17/17 05:59 05:59 05:59 Intake Total 2400 290 Output Total 400 Balance 2400 -110 PT 14.5 SEC (12.0-15.0) 02/13/17 09:01 INR 1.14 (0.83-1.16) 02/13/17 09:01 Physical Exam - Physical Exam General Appearance: no apparent distress Respiratory: normal breath sounds, No respiratory distress Skin: normal color ICD10 Worksheet Patient Problems: Problems Problem Status Onset Altered mental status Acute Anemia Acute Fever Acute Sacral decubitus ulcer, stage IV Acute Sepsis Acute
[2017-02-16] MEDS: POTASSIUM CL 20 MEQ TAB PO SCH (09:15)
[2017-02-16] MEDS: ENOXAPARIN 40 MG/0.4 ML SYR SC SCH (09:15)
[2017-02-16] MEDS: VANCOMYCIN 750 MG in D5W 150 ML IV SCH ×2 (10:02→21:08)
[2017-02-16] MEDS: DOCUSATE SODIUM 100 MG CAP PO SCH (11:09)
[2017-02-16 13:30] LABS: % IMMATURE GRANULYOCYTES 0.9 % (0.0-1.1); ABSOLUTE IMMATURE GRANULOCYTES 0.08 10^3/uL (0.00-0.10); ADD DIFF? NO; ADD MORPH? NO; ADD SCAN? NO; ATYPICAL LYMPHOCYTE FLAG 10 (0-99); FRAGMENT RBC FLAG 10 (0-99); HEMATOCRIT 23.8 % (38.0-47.0); HEMOGLOBIN 7.9 g/dL (12.6-16.3); LEFT SHIFT FLG 10 (0-99); LIPEMIA HEMOLYSIS FLAG 80 (0-99); MEAN CELL HEMOGLOBIN 27.5 pg (27.9-34.1); MEAN CELL HEMOGLOBIN CONCENTR. 33.2 g/dL (32.4-36.7); MEAN CELL VOLUME 82.9 fL (81.5-99.8); MEAN PLATELET VOLUME 8.5 fL (8.7-11.7); PLATELET CLUMPS FLAG 10 (0-99); PLATELET COUNT 365 10^3/uL (150-400); RED BLOOD CELL COUNT 2.87 10^6/uL (4.18-5.33); RED CELL DISTRIBUTION WIDTH 17.9 % (11.5-15.2)
--- NOTE | 2017-02-16 13:32 | ASMTCMCOM ---
CM Note CM Note Notes: Toi had a meeting w/ daughter and daughters today. DaughterEunice is MDPOA. CM met w/ daughter for dispo planning. Daughter would like a referral to be made to [facility]. CM faxed referral to [facility]. Daughter would like to be updated regularly CM informed GIANNA Larsen of this. Daughter is requesting that pts good friend Beba is a point of contact if an emergency should arises and to provide updates to as well. GIANNA Larsen is having either daughter or pt give verbal/written consent for Beba to recieve info. RENETTA to follow. Date Signed: 02/16/2017 01:44 PM Electronically Signed By:NOAH Benitez
--- NOTE | 2017-02-16 14:11 | PCMIDPN ---
Assessment/Plan: Assessment/Plan: 1. Sepsis secondary to infected pressure ulcer: - Blood cx \wtih Clostridium + Staph capitus. Suspect the Staph capitus is probably skin contaminant - Wound cx with E.coli and mrSa -Moreno fell out yesterday and thus she was soiling wound with urine also -Surgery to help with possibly further stool contamination of wound. - Urology also involved given above. patient will need suprapubic catheter.Spoke with urology. -- her blood cx have cleared, her wbc has improved. -Some type of procedure to help further reduce continued contamination of wounds with urine will be of benefit. - currenlty on Vanco + invanz - Not currenlty on PSa coverage. monitor closely. -f/u blood cx ngtd -wbc improved -will place picc given difficulty with IV access - care coordinated with Rn and hospitalist team. 2. Urine cx with Psa + E. coli - likely colonized. -not currenlty on PsA coverage. Subjective: Afebrile. per RN needs IV access for medications and lab draws etc. pt has pain involving her back side. denies sob. Objective: Vital Signs Temp Pulse Resp BP Pulse Ox 36.4 C 80 14 129/77 H 98 02/16/17 11:26 02/16/17 11:26 02/16/17 11:26 02/16/17 11:26 02/16/17 11:26 Microbiology 02/13/17 14:16 Gram Stain - Final Buttock - Swab Wound Culture - Final Escherichia Coli MRSA Laboratory Results 02/16/17 13:12 02/14/17 04:15 02/15/17 02/16/17 02/17/17 05:59 05:59 05:59 Intake Total 2400 290 Output Total 400 Balance 2400 -110 - Physical Exam General Appearance: alert, no apparent distress Respiratory: lungs clear Cardiac/Chest: regular rate, rhythm Extremities: No swelling Abdomen: normal bowel sounds, non-tender, soft, No distended Back: other (did not exam as lab attempting to get IV in place) ICD10 Worksheet Patient Problems: Problems Problem Status Onset Altered mental status Acute Anemia Acute Fever Acute Sacral decubitus ulcer, stage IV Acute Sepsis Acute
[2017-02-16] MEDS ORDERED: ALTEPLASE 2 MG VIAL IVP PRN (14:12)
--- NOTE | 2017-02-16 18:12 | PDPCPN ---
Palliative Care Progress Note Assessment/Plan: Referring provider: Fabiana Romero Reason for consult: Complex medical decision making Symptom control HPI: Bianca Cummins is a 66 yo female with PMH multiple sclerosis, quadraplegic, neurogenic bladder, and recurrent sacral ulcers admitted to the hospital for confusion and fevers. Found to have bacteremia from UTI vs large sacral decub. Wound vac applied yesterday but self discontinued due to rock and incontinence. At baseline lives at [facility] since 1999 and is wheelchair bound. She is cognitively aware when in her normal environment but confused in the hospital. She is dependent for all ADLs and does not have use of her limbs. She is able to interact and uses her computer through voice talk to interact with her friends online. Palliative care consulted for complex medical decision making. Spoke with her daughter Eunice and MO at the bedside. Bianca listened in and was able to tell us a little about her life. 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 She has lived most of her life here in [place] and raised her children in [facility]. She moved to when she could no longer be cared for at home. She is for 41 years and her still lives in [place] but has some progressive dementia. We discussed what means quality of life to Bianca. Per Eunice as long as she can interact on her computer and be present with her family she has a good quality of life. Her mother has always been very independent minded and likes to do things her way. We discussed challenges in her care now with large wound unable to have wound vac due to complications of urinary incontinence. Eunice states she has discussed with her mom her wishes which are to not be in a vegetative state. She also said she had previously stated no feeding tube and that she did not want an ostomy a couple of days ago when asked. We discussed aggressive medical interventions vs potential for not treating for infections or other aggressive measures. Eunice does not feel she is ready for hospice care but wants to have a focus on her comfort and quality while they continue to try to treat her wound. Assessment: Physical: - Pain: mild pain on sacrum -tylenol PRN - confusion - acute. maintain normal routines - weakness - turn and reposition - air mattress Emotional/psychological: is well supported by family. Has a deep belief in Dread. Advanced Care Planning: Is patient decisional?: not at this time due to some confusion Code Status: Full MD POA: daughter Eunice is MDPOA Plan: Continue aggressive wound care management. Will continue to support the family and patient with goals of quality of life along with life prolonging measures. Subjective: I'm ok Objective: Social History: for 41 years Has 2 children involved. Enjoys going on facebook and spending time with family. Medication list reviewed ROS: General: fatigue ENT: negative Resp: negative GI: negative : incontinence MS: sacral ulcer pain Skin: sacral ulcer Neuro: negative Psych: confusion Functional assessment: PPS: 40% Functional status:dependent on ADLs, IADLs Vital Signs Temp Pulse Resp BP Pulse Ox 36.6 C 94 18 140/70 H 99 02/16/17 16:00 02/16/17 16:00 02/16/17 16:00 02/16/17 16:00 02/16/17 16:00 Microbiology 02/13/17 14:16 Gram Stain - Final Buttock - Swab Wound Culture - Final Escherichia Coli MRSA Laboratory Results 02/16/17 13:12 02/14/17 04:15 02/15/17 02/16/17 02/17/17 05:59 05:59 05:59 Intake Total 2400 290 Output Total 400 Balance 2400 -110 PT 14.5 SEC (12.0-15.0) 02/13/17 09:01 INR 1.14 (0.83-1.16) 02/13/17 09:01 Physical Exam - Physical Exam General Appearance: alert, no apparent distress Respiratory: No respiratory distress, No accessory muscle use Skin: normal color, warm/dry Extremities: No pedal edema Neuro/Psych: alert, disoriented to place, disoriented to time ICD10 Worksheet Patient Problems: Problems Problem Status Onset Altered mental status Acute Anemia Acute Fever Acute Palliative care encounter Acute Sacral decubitus ulcer, stage IV Acute Sepsis Acute - ICD10 Problem Qualifiers (1) Palliative care encounter
[2017-02-16] MEDS: HYDROCODONE/APAP 5/325 TAB PO PRN (20:02)
[2017-02-16] MEDS: TEMAZEPAM 15 MG CAP PO SCH (21:08)
[2017-02-16] MEDS: IBUPROFEN 600 MG TAB PO SCH (21:08)
[2017-02-16] MEDS: ASPIRIN 81 MG CHEWABLE TAB PO SCH (21:08)
[2017-02-17] MEDS: HYDROCODONE/APAP 5/325 TAB PO PRN (02:35)
[2017-02-17] MEDS: BISACODYL 10 MG SUPP PR SCH (05:26)
[2017-02-17] MEDS: OMEGA-3 FATTY ACIDS 1,000 MG CAP PO SCH (05:26)
[2017-02-17] MEDS: traMADol 50 MG TAB PO SCH ×3 (05:26→17:53)
[2017-02-17] MEDS: MAGNESIUM OXIDE 400 MG TAB PO SCH (05:26)
[2017-02-17] MEDS: BACLOFEN 20 MG TAB PO SCH ×3 (05:26→17:53)
[2017-02-17] MEDS: MULTIVITAMINS W-MINERALS 1 EACH TAB PO SCH (05:26)
[2017-02-17] MEDS: OXYBUTYNIN CHLORIDE 30 MG PO SCH (05:27)
[2017-02-17 05:47] LABS: % IMMATURE GRANULYOCYTES 0.5 % (0.0-1.1); ABSOLUTE IMMATURE GRANULOCYTES 0.03 10^3/uL (0.00-0.10); ADD DIFF? NO; ADD MORPH? NO; ADD SCAN? NO; ATYPICAL LYMPHOCYTE FLAG 0 (0-99); FRAGMENT RBC FLAG 10 (0-99); HEMATOCRIT 23.2 % (38.0-47.0); HEMOGLOBIN 7.6 g/dL (12.6-16.3); LEFT SHIFT FLG 0 (0-99); LIPEMIA HEMOLYSIS FLAG 80 (0-99); MEAN CELL HEMOGLOBIN CONCENTR. 32.8 g/dL (32.4-36.7); MEAN CELL VOLUME 82.3 fL (81.5-99.8); MEAN PLATELET VOLUME 8.2 fL (8.7-11.7); PLATELET CLUMPS FLAG 0 (0-99); PLATELET COUNT 328 10^3/uL (150-400); RED BLOOD CELL COUNT 2.82 10^6/uL (4.18-5.33); RED CELL DISTRIBUTION WIDTH 17.6 % (11.5-15.2)
[2017-02-17 06:10] LABS: ALANINE AMINOTRANSFERASE 73 IU/L (9-52); ALBUMIN 2.3 g/dL (3.5-5.0); ALKALINE PHOSPHATASE 162 IU/L (38-126); ANION GAP 9 mEq/L (8-16); ASPARTATE AMINOTRANSFERASE 43 IU/L (14-46); BILIRUBIN,TOTAL 0.4 mg/dL (0.1-1.4); CALCIUM 8.3 mg/dL (8.5-10.4); CARBON DIOXIDE 25 mEq/l (22-31); CHLORIDE 101 mEq/L (97-110); CREATININE 0.6 mg/dL (0.6-1.0); GLOMERULAR FILTRATION RATE > 60; GLUCOSE 84 mg/dL (70-100); POTASSIUM 3.2 mEq/L (3.5-5.2); SODIUM 135 mEq/L (134-144); TOTAL PROTEIN 5.3 g/dL (6.3-8.2)
[2017-02-17] MEDS: ERTAPENEM 1 GM in NS 100 ML IV SCH (08:21)
[2017-02-17] MEDS: VANCOMYCIN 750 MG in D5W 150 ML IV SCH ×2 (08:21→20:45)
[2017-02-17] MEDS: POTASSIUM CL 20 MEQ TAB PO SCH (08:22)
[2017-02-17] MEDS ORDERED: PROTOCOL POTASSIUM 1 DOSE MISC PRN (09:08)
--- NOTE | 2017-02-17 10:09 | HOSPPROG ---
Hospitalist Progress Note Assessment/Plan: Patient is a 66-year-old female who was admitted on February 13 with complaints of fever and confusion. She has had multiple sclerosis for 30 years and has lived at [facility] for the past 17 years. In addition she has a neurogenic bladder, quadrant plegia. She has a chronic sacral decubitus ulcer. It has been getting larger and deeper. * large decubitus ulcer Unable to keep wound VAC in place due to Moreno being dislodged *sepsis secondary to a decubitus ulcer fever * bacteremia secondary to Clostridium ramosum On vancomycin and ertapenem *Pyuria Pseudomonas and E coli * prolapse bladder reviewed her care with Dr Mart/ (she has vesical fistula) Moreno placement can't be done/ she would need an ileo conduit or nephrostomy tubes asked Dr Mart to review w Dr Ferris (ID) to see what the next step should be * anemia trending low will discuss w her daughter about the poss of transfusion honorio if she were to get surgery * hypotension Blood pressure is 104/81 * plan. Spoke with Dr Mart, Dr Ferris and Bel Leal LIME FILTER OPERATOR/ the 4 of us will meet with the patient and her daughter to discuss treatment options. This meeting will be at noon. Appreciate the specialist being involved and helping care for Bianca. #. DVT ppx: Enoxaparin Subjective: Bianca has no complaints except for pain in where the sacral decub is. Objective: Vital Signs Temp Pulse Resp BP Pulse Ox 36.3 C 62 16 104/81 H 98 02/17/17 07:53 02/17/17 07:53 02/17/17 07:53 02/17/17 07:53 02/17/17 07:53 Microbiology 02/13/17 14:16 Gram Stain - Final Buttock - Swab Wound Culture - Final Escherichia Coli MRSA Laboratory Results 02/17/17 05:10 02/17/17 05:10 02/16/17 02/17/17 02/18/17 05:59 05:59 05:59 Intake Total 290 100 Output Total 400 Balance -110 100 PT 14.5 SEC (12.0-15.0) 02/13/17 09:01 INR 1.14 (0.83-1.16) 02/13/17 09:01 - Physical Exam Constitutional: chronically ill appearing, uncomfortable Eyes: PERRL Ears, Nose, Mouth, Throat: hearing normal Cardiovascular: regular rate and rhythym Respiratory: no respiratory distress Skin: warm Musculoskeletal: other (quadraplegia) Neurologic: other (alert and oriented to herself and her daughter's name) Psychiatric: poor memory ICD10 Worksheet Patient Problems: Problems Problem Status Onset Altered mental status Acute Anemia Acute Fever Acute Palliative care encounter Acute Sacral decubitus ulcer, stage IV Acute Sepsis Acute
[2017-02-17] MEDS: DOCUSATE SODIUM 100 MG CAP PO SCH (10:32)
[2017-02-17] MEDS: POTASSIUM Cl (KCl) 100 ML IV SCH ×4 (10:47→14:08)
[2017-02-17] MEDS: ENOXAPARIN 40 MG/0.4 ML SYR SC SCH (10:47)
--- NOTE | 2017-02-17 15:03 | ASMTCMCOM ---
CM Note CM Note Notes: DC poc still unclear, hosipitalist organizing care conference meeting with surgeon, ID and pt's dtr to discuss options and next steps. CM notified Carter at [facility] that pt not ready. Date Signed: 02/17/2017 03:02 PM Electronically Signed By:Nadja Knight RN
--- NOTE | 2017-02-17 15:52 | WOCRNPDOC ---
WOCRN Advanced Assessment Note - Skin Integrity Problem, Advanced Assess Right Ischial Tuberosity Pressure Injury Dressing Type: ABD Pad, Kerlix Dressing Description: Intact Exudate Amount: Minimal Exudate Characteristic(s): Serosanguinous Integumentary Issue Intervention: Dressing Changed Adilene Wound Tissue: Scarred Wound Bed Color: [place], Yellow Wound Bed Constitution: Granulation Tissue, Smooth Tissue, Undermining (12-3 o' clock, to 7 cm) Pressure Injury Stage: Stage 4 Pressure Injury Present on Admit: Yes Skin Integrity Problem Comment: Adilene wound tissue remains moist as patient leaks urine regularly. Wound cleaned with NS and gauze. Kerlix moistened with NS and packed into wound to just fill the space. Kerlix cut and an ABD was placed over the wound and secured with medipore tape. Patient tolerated the procedure well. radiology therapistGIANNA Colunga at the bedside and assisting with patient positioning. Wound care will round again on Monday 02/19.
--- NOTE | 2017-02-17 17:54 | PCMIDPN ---
Assessment/Plan: Assessment/Plan: * Sepsis due to decubitus ulcer infection with blood culture showing growth of Clostridium (also 1 set grew Staphylococcus capitis which may represent skin contaminant) and polymicrobial wound cultures including MRSA: Clinically stabilized with resolution of sepsis. Issue complicated by contamination of wound with both urine and stool in the setting of impaired mobility and poor performance status. Management of urinary contamination complicated by urogynecologic anatomy. Considerations would include (1) nephrostomy tube placement with wound VAC to determine if wound will heal enough for possible secondary closure or flap closure, (2) urostomy and colostomy for definitive diversion with wound VAC placement, (3) continued local wound care without further intervention recognizing this is palliative approach. Continue vancomycin and ertapenem. Plan for multidisciplinary meeting with family tomorrow to discuss ongoing plan of care. * Urine culture positive for Pseudomonas/E coli: Most compatible colonization. Given improvement, will not proceed with targeted antibiotic therapy for Pseudomonas. 02/17/17 17:45 Subjective: Patient confused earlier today. Reviewed anatomical complexities with Dr. Mart earlier today. Objective: Vital Signs Temp Pulse Resp BP Pulse Ox 36.7 C 93 22 H 131/76 H 93 02/17/17 15:44 02/17/17 15:44 02/17/17 15:44 02/17/17 15:44 02/17/17 15:44 Microbiology 02/13/17 14:16 Gram Stain - Final Buttock - Swab Wound Culture - Final Escherichia Coli MRSA Laboratory Results 02/17/17 05:10 02/17/17 05:10 02/16/17 02/17/17 02/18/17 05:59 05:59 05:59 Intake Total 290 100 Output Total 400 Balance -110 100 Vancomycin # 3 Ertapenem # 3 Blood cultures times to 02/14/2017 no growth Laboratory Tests 02/15/17 08:00 Vancomycin Trough 12.7 - Physical Exam General Appearance: non-toxic, other (Mildly confused) EENT: No scleral icterus Extremities: other (Ischial decubitus ulcer with clean base and no surrounding cellulitis; no necrotic tissue or purulent drainage) - Line/s LUE PICC Lines: No drainage, No erythema ICD10 Worksheet Patient Problems: Problems Problem Status Onset Altered mental status Acute Anemia Acute Fever Acute Palliative care encounter Acute Sacral decubitus ulcer, stage IV Acute Sepsis Acute
[2017-02-17] MEDS ORDERED: METHOTREXATE 2.5 MG TAB PO SCH (21:00)
[2017-02-17] MEDS: IBUPROFEN 600 MG TAB PO SCH (21:05)
[2017-02-17] MEDS: ASPIRIN 81 MG CHEWABLE TAB PO SCH (21:06)
[2017-02-17] MEDS: TEMAZEPAM 15 MG CAP PO SCH (21:06)
[2017-02-17] MEDS: HYDROmorphONE/DILAUDID 1 MG/ML INJ IVP PRN (22:01)
[2017-02-17 22:56] LABS: POTASSIUM 3.5 mEq/L (3.5-5.2)
[2017-02-18] MEDS: POTASSIUM Cl (KCl) 100 ML IV SCH ×3 (00:01→02:17)
[2017-02-18] MEDS: BACLOFEN 20 MG TAB PO SCH ×3 (04:00→16:13)
[2017-02-18] MEDS: MAGNESIUM OXIDE 400 MG TAB PO SCH (04:00)
[2017-02-18] MEDS: MULTIVITAMINS W-MINERALS 1 EACH TAB PO SCH (04:00)
[2017-02-18] MEDS: OMEGA-3 FATTY ACIDS 1,000 MG CAP PO SCH (04:01)
[2017-02-18] MEDS: traMADol 50 MG TAB PO SCH ×2 (04:01→10:12)
[2017-02-18] MEDS: OXYBUTYNIN CHLORIDE 30 MG PO SCH (04:01)
[2017-02-18] MEDS: BISACODYL 10 MG SUPP PR SCH (04:55)
[2017-02-18] MEDS: HYDROmorphONE/DILAUDID 1 MG/ML INJ IVP PRN (05:24)
[2017-02-18 06:29] LABS: POTASSIUM 4.2 mEq/L (3.5-5.2)
--- NOTE | 2017-02-18 08:22 | HOSPPROG ---
Hospitalist Progress Note Assessment/Plan: Patient is a 66-year-old female who was admitted on February 13 with complaints of fever and confusion. She has had multiple sclerosis for 30 years and has lived at [facility] for the past 17 years. In addition she has a neurogenic bladder, quadrant plegia. She has a chronic sacral decubitus ulcer. It has been getting larger and deeper. * large decubitus ulcer concern for contamination from stool and urine *sepsis secondary to a decubitus ulcer fever * bacteremia secondary to Clostridium ramosum On vancomycin and ertapenem *Pyuria Pseudomonas and E coli * prolapse bladder reviewed her care with Dr Mart/ (she has vesical fistula) Moreno placement can't be done/ she would need an ileo conduit or nephrostomy tubes asked Dr Mart to review w Dr Ferris (ID) to see what the next step should be * anemia trending low will discuss w her daughter about the poss of transfusion honorio if she were to get surgery * hypotension/resolved Blood pressure is 162/87 * plan. To have a multidisciplinary with the patient, her daughter, ID and urology, ST has not cleared her to eat, will start iv fluids and cont holding lasix Subjective: Bianca doesn't complain of pain. Keeps saying "i love you" Objective: Vital Signs Temp Pulse Resp BP Pulse Ox 37.1 C 91 20 162/87 H 97 02/18/17 07:14 02/18/17 07:14 02/18/17 07:14 02/18/17 07:14 02/18/17 07:14 Laboratory Results 02/17/17 05:10 02/18/17 06:05 02/17/17 02/18/17 02/19/17 05:59 05:59 05:59 Intake Total 100 Balance 100 PT 14.5 SEC (12.0-15.0) 02/13/17 09:01 INR 1.14 (0.83-1.16) 02/13/17 09:01 - Physical Exam Constitutional: chronically ill appearing, uncomfortable Eyes: PERRL Ears, Nose, Mouth, Throat: hearing normal Cardiovascular: regular rate and rhythym Respiratory: no respiratory distress Skin: warm, other (generalized body swelling) Musculoskeletal: other (quadraplegic) Neurologic: other (alert) Psychiatric: encephalopathic ICD10 Worksheet Patient Problems: Problems Problem Status Onset Altered mental status Acute Anemia Acute Fever Acute MRSA (methicillin resistant Staphylococcus aureus) Acute ~02/13/17 Palliative care encounter Acute Sacral decubitus ulcer, stage IV Acute Sepsis Acute
[2017-02-18] MEDS ORDERED: D5W 1/2 NS W/ 20 KCl/L 1,000 ML IV SCH (08:30)
[2017-02-18] MEDS ORDERED: POTASSIUM Cl (KCl) 10 MEQ in D5W 1/2 NS 1,000 ML IV SCH (08:30)
[2017-02-18] MEDS: VANCOMYCIN 750 MG in D5W 150 ML IV SCH ×2 (08:48→11:21)
[2017-02-18] MEDS: ERTAPENEM 1 GM in NS 100 ML IV SCH (08:48)
[2017-02-18] MEDS: ENOXAPARIN 40 MG/0.4 ML SYR SC SCH (08:49)
[2017-02-18] MEDS: POTASSIUM CL 20 MEQ TAB PO SCH (10:12)
[2017-02-18] MEDS: DOCUSATE SODIUM 100 MG CAP PO SCH (10:12)
--- NOTE | 2017-02-18 15:30 | PCMIDPN ---
Assessment/Plan: Assessment/Plan: * Sepsis due to decubitus ulcer infection with blood culture showing growth of Clostridium (also 1 set grew Staphylococcus capitis which may represent skin contaminant) and polymicrobial wound cultures including MRSA: Participated in multi disciplinary meeting with family, hospitalist service, Urology, and palliative care today. Current clinical problems and treatment options were discussed. Family planning to move to comfort measures with probable return to [facility] with hospice care. Vancomycin stopped earlier today due to increased trough level. Ertapenem continues with plans to discontinue once comfort care initiated. * Urine culture positive for Pseudomonas/E coli: Most compatible with colonization. Time spent, 30 minutes, of which the entire visit was spent in a multi disciplinary meeting to coordinate further care. 02/18/17 15:27 Objective: Vital Signs Temp Pulse Resp BP Pulse Ox 37.2 C 94 20 165/84 H 97 02/18/17 12:00 02/18/17 12:00 02/18/17 12:00 02/18/17 12:00 02/18/17 12:00 Laboratory Results 02/17/17 05:10 02/17/17 02/18/17 02/19/17 05:59 05:59 05:59 Intake Total 100 Balance 100 Vancomycin # 4 Ertapenem # 4 Laboratory Tests 02/18/17 09:30 Vancomycin Trough 24.5 H* Blood cultures 02/14/2017 no growth ICD10 Worksheet Patient Problems: Problems Problem Status Onset Altered mental status Acute Anemia Acute Fever Acute MRSA (methicillin resistant Staphylococcus aureus) Acute ~02/13/17 Palliative care encounter Acute Sacral decubitus ulcer, stage IV Acute Sepsis Acute
[2017-02-18 15:44] LABS: ANION GAP 12 mEq/L (8-16); CALCIUM 8.4 mg/dL (8.5-10.4); CARBON DIOXIDE 20 mEq/l (22-31); CHLORIDE 103 mEq/L (97-110); CREATININE 0.6 mg/dL (0.6-1.0); GLOMERULAR FILTRATION RATE > 60; GLUCOSE 73 mg/dL (70-100); POTASSIUM 4.4 mEq/L (3.5-5.2); SODIUM 135 mEq/L (134-144)
--- NOTE | 2017-02-18 16:34 | PDPCPN ---
Palliative Care Progress Note Assessment/Plan: HPI: Bianca Cummins is a 66 yo female with PMH multiple sclerosis, quadraplegic, neurogenic bladder, and recurrent sacral ulcers admitted to the hospital for confusion and fevers. Found to have bacteremia from UTI vs large sacral decub. Wound vac applied yesterday but self discontinued due to rock and incontinence. At baseline lives at [facility] since 1999 and is wheelchair bound. She is cognitively aware when in her normal environment but confused in the hospital. She is dependent for all ADLs and does not have use of her limbs. She is able to interact and uses her computer through voice talk to interact with her friends online. Palliative care consulted for complex medical decision making. Met with daughter Eunice, Dale, Fabiana Romero, Dr Mart, Dr Ferris, and Mariah Virk outside of the room. Medical interventions and plan for aggressive interventions was discussed. Discussed even with these intereventions Bianca has end stage MS and likelihood of a full recovery is not good. Family decided to focus just on comfort care and do not believe Bianca would want to be kept alive on artificial nutrition and on tubes. Plan for hospice care back at [facility]. Assessment: Physical: - Pain: mild pain on sacrum -tylenol PRN - confusion - acute. maintain normal routines - weakness - turn and reposition - air mattress Emotional/psychological: is well supported by family. Has a deep belief in Dread. Advanced Care Planning: Is patient decisional?: not at this time due to some confusion Code Status: DNR POA: aditi Dawson is MDPOA Plan: Return back to [facility] with hospice care. Subjective: sleeping Objective: Vital Signs Temp Pulse Resp BP Pulse Ox 37.2 C 102 H 20 165/84 H 97 02/18/17 15:55 02/18/17 15:55 02/18/17 15:55 02/18/17 15:55 02/18/17 15:55 Laboratory Results 02/17/17 05:10 02/18/17 09:30 02/17/17 02/18/17 02/19/17 05:59 05:59 05:59 Intake Total 100 Balance 100 PT 14.5 SEC (12.0-15.0) 02/13/17 09:01 INR 1.14 (0.83-1.16) 02/13/17 09:01 ICD10 Worksheet Patient Problems: Problems Problem Status Onset Altered mental status Acute Anemia Acute Fever Acute MRSA (methicillin resistant Staphylococcus aureus) Acute ~02/13/17 Palliative care encounter Acute Sacral decubitus ulcer, stage IV Acute Sepsis Acute - ICD10 Problem Qualifiers (1) Palliative care encounter
--- NOTE | 2017-02-18 16:42 | ASMTCMCOM ---
CM Note CM Note Notes: Today Roseannar participated in family/team care conference for Pt. Pt. is confused and unable to gainfully participate. Meeting held in [address] Present were daughter/MDPOA Eunice, Dale, Tran, Palliative Care POKER MACHINE ATTENDANT, Medical Assistant Secretary, hospitalist, ID MD, and urologist surgeon. MDs discussed Pt.'s difficult medical situation. Eunice and Dale asked appropriate questions. Team provided support. After discussion, Eunice and Dale decided to have Pt. go on comfort care measures. Tran called [facility] about plans to have Pt. come home there w/ hospice services. Pili Clark recommended [facility] . Tran spoke w/ Lance at [facility] who received [employer] referral. Plan is for hospice DME, etc to be delivered to [facility] and for Pt. to d/c tomorrow. Niall at [facility] in agreement with plan. Daughter Eunice in agreement with plan. SW to follow tomorrow for d/c. Date Signed: 02/18/2017 04:42 PM Electronically Signed By:Mariah Virk LCSW
[2017-02-18] MEDS: LORazepam 2 MG/ML INJ IVP PRN (17:22)
[2017-02-18] MEDS: IBUPROFEN 600 MG TAB PO SCH (20:29)
[2017-02-19] MEDS: LORazepam 2 MG/ML INJ IVP PRN (00:20)
[2017-02-19] MEDS: BACLOFEN 20 MG TAB PO SCH ×2 (04:18→12:59)
[2017-02-19] MEDS: BISACODYL 10 MG SUPP PR SCH (06:32)
[2017-02-19 09:04] VITALS: BP 143/82; PULSE 95; RESP 20; TEMP 99.6; O2SAT 94
--- NOTE | 2017-02-19 09:59 | HOSPPROG ---
Hospitalist Progress Note Assessment/Plan: Patient is a 66-year-old female who was admitted on February 13 with complaints of fever and confusion. She has had multiple sclerosis for 30 years and has lived at [facility] for the past 17 years. In addition she has a neurogenic bladder, quadrant plegia. She has a chronic sacral decubitus ulcer. It has been getting larger and deeper. * large decubitus ulcer concern for contamination from stool and urine *sepsis secondary to a decubitus ulcer fever * bacteremia secondary to Clostridium ramosum On vancomycin and ertapenem *Pyuria Pseudomonas and E coli * prolapse bladder reviewed her care with Dr Mart/ (she has vesical fistula) Moreno placement can't be done/ she would need an ileo conduit or nephrostomy tubes asked Dr Mart to review w Dr Ferris (ID) to see what the next step should be * anemia trending low will discuss w her daughter about the poss of transfusion honorio if she were to get surgery * hypotension/resolved Blood pressure is 143/82 * plan. pt now on comfort measures/ will tx care to hospice Subjective: Bianca is smiling. Objective: Vital Signs Temp Pulse Resp BP Pulse Ox 37.6 C 95 20 143/82 H 94 02/19/17 08:00 02/19/17 08:00 02/19/17 08:00 02/19/17 08:00 02/19/17 08:00 Laboratory Results 02/17/17 05:10 02/18/17 09:30 02/18/17 02/19/17 02/20/17 05:59 05:59 05:59 Intake Total 240 Balance 240 PT 14.5 SEC (12.0-15.0) 02/13/17 09:01 INR 1.14 (0.83-1.16) 02/13/17 09:01 - Physical Exam Constitutional: chronically ill appearing Ears, Nose, Mouth, Throat: hearing normal Cardiovascular: regular rate and rhythym Respiratory: bronchial breath sounds Skin: warm Musculoskeletal: other (quadraplegic) Psychiatric: other (staring at the ceiling) ICD10 Worksheet Patient Problems: Problems Problem Status Onset Altered mental status Acute Anemia Acute Fever Acute MRSA (methicillin resistant Staphylococcus aureus) Acute ~02/13/17 Palliative care encounter Acute Sacral decubitus ulcer, stage IV Acute Sepsis Acute
--- NOTE | 2017-02-19 10:14 | PDIAF ---
- Diagnosis Diagnosis: sacral decub/ end stage MS Code Status: Do Not Resuscitate - Medication Management Discharge Medications: Medications to Continue on Transfer Baclofen [Baclofen 20 mg (*)] 20 mg PO BID@,02/13/17 [Last Taken 02/12/17] Baclofen [Baclofen 20 mg (*)] 20 mg PO DAILY@02/13/17 [Last Taken 02/13/17] Bisacodyl [Dulcolax] 10 mg RC DAILY@02/13/17 [Last Taken 02/13/17] Hydrocodone/Acetaminophen [Bruceton 5/325 (*)] 1 - 2 tab PO BID@, PRN 02/13/17 [Last Taken 02/12/17] Ibuprofen [Motrin (*)] 600 mg PO HS 02/13/17 [Last Taken 02/12/17] Temazepam [RESTORIL] 22.5 mg PO CORTES@02/13/17 [Last Taken 02/07/17] Tizanidine HCl [Zanaflex] 4 mg PO BID@,02/13/17 [Last Taken Unknown] traMADol [Ultram 50 mg (*)] 100 mg PO TID@,,02/13/17 [Last Taken 02/12/17 ] Acetaminophen [Tylenol 325mg (*)] 650 mg PO Q4HRS PRN tab 02/19/17 [Last Taken Unknown] LORazepam [Ativan (*)] 0.5 - 1 mg PO Q1 #10 tab 02/19/17 [Last Taken Unknown] morphINE [Roxanol 10 mg/0.5 ml oral soln (*)] 10 mg PO Q2 7 Days #1 btl [Last Taken Unknown] Discharge Medications: Refer to the Discharge Home Medication list for PRN reason. - Orders Diet Texture: No Oral Liquids, Non Oral Meds Additional: care per hospice - Follow Up Care Current Providers and Referrals: BRIAN LOYA MD [Other] - As per Instructions
[2017-02-19] MEDS: DOCUSATE SODIUM 100 MG CAP PO SCH (12:59)
--- NOTE | 2017-02-19 13:19 | GDS ---
[f rep st] DISCHARGE SUMMARY DISCHARGE DIAGNOSES: 1. Large decubitus ulcer. 2. Sepsis secondary to decubitus ulcer. 3. Bacteremia secondary to Clostridium ramosum. 4. Pyuria with urine growing out Pseudomonas and Escherichia coli. 5. Prolapsed bladder. 6. Anemia. 7. Hypotension. CONSULTATIONS: 1. Negro Mart MD. 2. Forest Perkins MD. 3. GENET Mcgregor with Palliative Care Services. HOSPITAL COURSE: Briefly, the patient is a 66-year-old woman with a history of multiple sclerosis with resultant quadriplegia, neurogenic bladder, and recurrent sacral ulcers. She was admitted to the hospital for confusion and fevers. On admission, she was found to have a bacteremia from the large sacral decubitus. A wound VAC was unable to be applied because of urine incontinence. A Moreno was not able to be placed in, due to her anatomy. She was seen and evaluated by Urology, who recommended an ileal conduit or nephrostomy tube placements. Also of concern was that her sacral wound was getting contaminated with fecal. In addition, she was having difficulty with swallowing. Concern was ongoing aspiration. After a multidisciplinary meeting with the family, Hospitalist Service, Urology, and Palliative Care team, it was decided to move toward comfort measures with a return to [facility] with hospice care. Today, the patient is minimally responsive. She will go to [facility] with hospice. CONDITION AT DISCHARGE: Stable. Blood pressure is 143/82, heart rate is 95, respiratory rate is 20, O2 saturations on 4 L are 94%. BILLING: Greater than 30 minutes discharging and coordinating her care. /[id number]/MODL MTDD
--- NOTE | 2017-02-19 14:14 | ASMTCMCOM ---
CM Note CM Note Notes: Today Pt. d/c'ed to [facility] with [facility] services. Tran coordinated with Catherine at [facility] and Niall at [facility] and daughter Eunice Kilpatrick . Plan for [facility] stretcher bead picker at 14:00. Let Bedside RN know. PCS, FS, and DNR order given to UC. Danielle is RN from [facility] who plans to meet Pt. and family at [facility] when Pt. arrives. At Eunice's request, Tran called Bel Wise NP on the Palliative care team for some final questions about nutrition and end of life processes. Bel came to floor to speak w/ Eunice. Pt. d/jian. Date Signed: 02/19/2017 02:14 PM Electronically Signed By:Mariah Virk LCSW
--- NOTE | 2017-02-19 17:41 | ASDISCHSUM ---
Discharge Information Plan Status:Longterm Return Medically Cleared to Leave: Discharge Date:02/19/2017 02:13 PM CM D/C Disposition:Hospice Home ADT D/C Disposition:Senior Care Facility Projected Discharge Date:02/19/2017 02:00 PM Transportation at D/C:ALS/BLS Discharge Delay Reason: Follow-Up Date:02/19/2017 02:00 PM Discharge Slot: Final Diagnosis: Placement Information Referral Type:General Neurologist Acute [facility] Hospital Referral ID:[id number] Provider Name: Address 1: Phone Number: Address 2: Fax Number: City: Selection Factors: State: Referral Type:*Hospice Referral ID:[id number] Provider Name:u[facility]sit[facility], [facility] Address 1:[address] [address] Address 2: City:[place] Selection Factors: State:[place] Referral Type:*Longterm/SNF Referral ID:[id number] Provider Name:Pili Crouchulder Address 1:[address] Address 2: City:[place] Selection Factors: State:[place] Patient Contact Information Contact Name:FABIÁN Relationship: Address:[address] [place] [address] Work Phone: City:[place] Alternate Phone: [facility]/Zip Code:[place] [address] Email: Financial Information Financial Class: Primary Plan Desc:MEDICARE INPATIENT Primary Plan Number:[id number] Secondary Plan Desc:[facility] Secondary Plan Number:[id number] Assessment Information [facility] Initial CM Assessment Living Arrangements What is your living Answers: With Other (Not Family) arrangement? Who do you live with? Type Of Residence What kind of residence do Answers: Assisted Living you live in? Type of Residence Facility Name Notes: [facility] Case Management Evaluation Education Needs Answers: Advance Directive Notes: Request for Advance Directive change of cod e Discharge Plan Comments Coordination Status Comments Notes: Pt in [facility] via ambulance from [facility]. She arrived with altered mental status and fever. Pts daughter Eunice Kilpatrick ([phone]) and son in law Michael Kilpatrick ([phone]) both RNs expressed concerns about her deteriorating state and increasing symptoms of MS. Specifically, pt has experienced increased choking and inability to chew. Eunice expressed high concerns for pts quality of life. They indicated that pt has been in [facility] for 17 years and there are no significant complaints regarding her care. Pt is generally healthy aside from a wound that will not heal near her rectum; it has been there for 7 years. According to Eunice, the pt loves the [facility] and has a new grandbaby on the way; she views those as her primary motivators. The pts lives in [place]. Eunice and Michael expressed concern regarding his ability to make decisions with regard to pts care. Eunice would like to be the decision maker for her mother. Eunice and Michael provided with "Your Right to Make Healthcare Decisions" brochure. Additional advanced directive information would be beneficial. Eunice would like to initiate an advanced directive but the pt has declined to discuss it. Additional CM needs TBD, RENETTA to follow. Date Signed: 02/13/2017 11:43 AM Electronically Signed By:Darshana Reynolds LCSW [facility] CM Progress Note CM Note CM Note Notes: Rec[employer] completed MPOA with pt and her family. Pt unable to sign 2/2 her MS however dtr and other family members present as witnesses along with the occupational therapist's assistant. A palliative consult has been requested by pt and family and they want to complete a MOST form. PA informed. Anticipate d/c back to [facility] when medically ready. Date Signed: 02/14/2017 02:59 PM Electronically Signed By:CHREI Grewal [facility] CM Progress Note CM Note CM Note Notes: Toi had a meeting w/ daughter and daughters today. DaughterEunice is MDPOA. CM met w/ daughter for dispo planning. Daughter would like a referral to be made to [facility]. CM faxed referral to [facility]. Daughter would like to be updated regularly CM informed GIANNA Larsen of this. Daughter is requesting that pts good friend Beba is a point of contact if an emergency should arises and to provide updates to as well. GIANNA Larsen is having either daughter or pt give verbal/written consent for Beba to recieve info. CM to follow. Date Signed: 02/16/2017 01:44 PM Electronically Signed By:NOAH Benitez [facility] CM Progress Note CM Note CM Note Notes: DC poc still unclear, hosipitalist organizing care conference meeting with surgeon, ID and pt's dtr to discuss options and next steps. RENETTA notified Carter at [facility] that pt not ready. Date Signed: 02/17/2017 03:02 PM Electronically Signed By:Nadja Knight RN [facility] CM Progress Note CM Note CM Note Notes: Today SWer participated in family/team care conference for Pt. Pt. is confused and unable to gainfully participate. Meeting held in [address] Present were daughter/ANDRESSA Dawson, Dale, Roseannar, Palliative Care DIRECTOR BIOLOGICS, Recycling Or Rubbish Collector, hospitalist, ID MD, and urologist surgeon. MDs discussed Pt.'s difficult medical situation. Eunice and Dale asked appropriate questions. Team provided support. After discussion, Eunice and Dale decided to have Pt. go on comfort care measures. Tran called [facility] about plans to have Pt. come home there w/ hospice services. [facility] recommended [facility] . Tran spoke w/ Lance at [facility] who received [employer] referral. Plan is for hospice DME, etc to be delivered to [facility] and for Pt. to d/c tomorrow. Niall at [facility] in agreement with plan. Daughter Eunice in agreement with plan. SW to follow tomorrow for d/c. Date Signed: 02/18/2017 04:42 PM Electronically Signed By:Mariah Virk LCSW [facility] CM Progress Note CM Note CM Note Notes: Today Pt. d/c'ed to [facility] with [facility] services. Roseannar coordinated with Catherine at [facility] and Niall at [facility] and daughter Eunice Kilpatrick . Plan for [facility] stretcher warehouse order picker at 14:00. Let Bedside RN know. PCS, FS, and DNR order given to Silvia Santos is RN from [facility] who plans to meet Pt. and family at [facility] when Pt. arrives. At Eunice's request, Tran called Bel Wise NP on the Palliative care team for some final questions about nutrition and end of life processes. Bel came to floor to speak w/ Eunice. Pt. narayan/jian. Date Signed: 02/19/2017 02:14 PM Electronically Signed By:Mariah Virk LCSW Intervention Information Intervention Type:*Incorrect Registration Date of Service:02/13/2017 11:27 AM Patient Type:Inpatient Staff Member:GIANNA Monteiro, Addie Hours:0.25 Discipline: Severity:1 (0-1 Hours) Comment:Registered observation admit order wri tten for inpatient status. Intervention Type:*IM-Signed Date of Service:02/19/2017 11:22 AM Patient Type:Inpatient Staff Member:Phyllis Gallegos Hours: Discipline: Severity: Comment:
[2017-02-25] MEDS ORDERED: ERGOCALCIFEROL 50,000 I.UNIT CAP PO SCH (09:00)
== END 2017-02-19 14:13 | DRG 871 ==
LOC: EDUNIT# → OBSVTOIN 11:27 → F3E 12:06
PROVIDERS: ADMIT Internal Medicine; ATTEND Internal Medicine
PROC: 02HV33Z Insertion of Infusion Device into Superior Vena Cava, Percutaneous Approach (ICD-10-PCS; principal; 2017-02-16)
DX: A41.4 Sepsis due to anaerobes (principal); L89.314 Pressure ulcer of right buttock, stage 4; N39.0 Urinary tract infection, site not specified; B96.5 Pseudomonas (aeruginosa) (mallei) (pseudomallei) as the cause of diseases classified elsewhere; B96.20 Unspecified Escherichia coli [E. coli] as the cause of diseases classified elsewhere; N32.2 Vesical fistula, not elsewhere classified; N81.10 Cystocele, unspecified; G35 Multiple sclerosis; K59.2 Neurogenic bowel, not elsewhere classified; G82.50 Quadriplegia, unspecified; N31.9 Neuromuscular dysfunction of bladder, unspecified; R47.1 Dysarthria and anarthria; R49.0 Dysphonia; D53.9 Nutritional anemia, unspecified; I10 Essential (primary) hypertension; Z96.0 Presence of urogenital implants; Z66 Do not resuscitate; Z51.5 Encounter for palliative care
CPT/HCPCS: 92610-GN; 96365; C1751; G8996-GN-CI; G8996-GN-CM; G8997-GN-CI; G8997-GN-CK; G8998-GN-CI; J1170; J1335; J1650; J1956; J2060; J3370